=== PATIENT | male | born 1990 | race Caucasian/White ===

== ENCOUNTER 2016-04-26 16:40 | Emergency (ER) | payer OTHER ==
[2016-04-26] MEDS ORDERED: Sodium Chloride 0.9% 1000 ML 1,000 ML IV STA ×2 (17:16→17:18)
[2016-04-26] MEDS ORDERED: Zofran 4 MG/2 ML VIAL IV ONE (17:16)
[2016-04-26] MEDS ORDERED: PROTONIX 40 MG IV IV ONE ×2 (17:16→17:25)
[2016-04-26] MEDS ORDERED: Zofran 4 MG/2 ML VIAL ONE (17:25)
[2016-04-26] MEDS ORDERED: Sodium Chloride 0.9% 1000 ML 2,000 ML ONE (17:25)
[2016-04-26 17:42] LABS: Mean Cell Volume 86.4 fl (78-100); Mean Corpuscular Hemoglobin 29.5 pg (26-32); Mean Platelet Volume 10.8 fl (6-9.5); Platelet Count 262 K/mm3 (150-450); Red Blood Count 5.65 M/mm3 (4.1-5.6); Red Cell Distribution Width 13.1 % (11.5-14.0); White Blood Count 15.9 K/mm3 (4.0-10.5)
[2016-04-26 17:43] LABS: INR 1.03 (0.8-3.0); PROTIME 11.5 SECONDS (8.83-12.87)
[2016-04-26 17:50] LABS: ALBUMIN 4.3 g/dL (3.4-5.0); ALKALINE PHOSPHATASE 75 U/L (46-116); BILIRUBIN,TOTAL 0.8 mg/dL (0.2-1.0); BLOOD UREA NITROGEN 20 mg/dL (9-20); CHLORIDE 100 mEq/L (98-107); Carbon Dioxide 23.6 mEq/L (21-32); Glucose 122 MG/DL (70-110); LIPASE 117 U/L (73-393); Potassium 4.2 mEq/L (3.5-5.1); SGOT/AST 38 U/L (15-37); SGPT/ALT 85 U/L (12-78); SODIUM 138 mEq/L (136-145); Total Protein 7.8 gm/dL (6.4-8.2)
--- NOTE | 2016-04-26 17:59 | ERPHSYRPT ---
- History of Present Illness Time Seen by Provider: 04/26/16 17:00 Historian: patient Exam Limitations: clinical condition Patient Subjective Stated Complaint: PT REPORTS VOMITING SINCE LAST NIGHT- REPORTS DIARHEA RESOLVING AT [place] 1200 TODAY-UNSURE OF FEVER-PT REPORTS VOMITING BRIGHT RED BLOOD TURNING INTO A DARK RED COLOR Triage Nursing Assessment: PT PALE WARM ET DIAPHOERTIC UPON ARRIVAL-RESP NONLABORED-ABD SOFT ET TENDER TO PALP-WORSE ON THE RIGHT LOWER QUAD Physician History: PATIENT COMPLAINS OF UPPER ABDOMINAL PAINS, FREQUENT EPISODES VOMITING SINCE 8PM LAST NIGHT CONTAINING BLOOD. ALSO HAS ASSOCIATED DIARRHEA. ADMITS TO FEELING DROWSY, HAS NOT SLEPT LAST NIGHT. DENIES FEVER, RECTAL BLEEDING. Timing/Duration: yesterday Activities at Onset: none Quality: cramping Abdominal Pain Onset Location: epigastric, periumbilical Pain Radiation: no radiation Severity of Pain-Max: moderate Severity of Pain-Current: moderate Modifying Factors: Improves With: nothing Associated Symptoms: diarrhea, nausea, vomiting Previous symptoms: no prior history Allergies/Adverse Reactions: No Known Drug Allergies Allergy (Verified 04/26/16 16:51) Home Medications: No Home Meds 1 ea UD 04/26/16 [History] Hx Tetanus, Diphtheria Vaccination/Date Given: Yes (2009) Hx Influenza Vaccination/Date Given: Yes Hx Pneumococcal Vaccination/Date Given: No Immunizations Up to Date: Yes - Review of Systems Constitutional: No Fever, No Chills Eyes: No Symptoms Ears, Nose, & Throat: No Symptoms Respiratory: No Symptoms, No Cough, No Dyspnea Cardiac: No Symptoms, No Chest Pain, No Edema, No Syncope Abdominal/Gastrointestinal: Abdominal Pain, Nausea, Vomiting, Diarrhea Genitourinary Symptoms: No Symptoms, No Dysuria Musculoskeletal: No Symptoms, No Back Pain, No Neck Pain Skin: No Symptoms, No Rash Neurological: No Dizziness, No Focal Weakness, No Sensory Changes Psychological: No Symptoms Endocrine: No Symptoms All Other Systems: Reviewed and Negative - Past Medical History Pertinent Past Medical History: No - Past Surgical History Past Surgical History: Yes Other Surgical History: tonsils removed - Social History Smoking Status: Never smoker Exposure to second hand smoke: No Alcohol Use: Socially Drug Use: none Patient Lives Alone: No Significant Family History: no pertinent family hx - Nursing Vital Signs Nursing Vital Signs: Initial Vital Signs Temperature 98.9 F Temperature Source Oral Pulse Rate 92 Respiratory Rate 16 Blood Pressure 100/56 Pain Intensity 0 - Physical Exam General Appearance: no apparent distress, lethargy, other (DROWSY, EASILY AROUSABLE) Eye Exam: PERRL/EOMI, eyes nml inspection Ears, Nose, Throat Exam: normal ENT inspection, pharynx normal, moist mucous membranes Neck Exam: normal inspection, non-tender, supple, full range of motion Respiratory Exam: normal breath sounds, lungs clear, No respiratory distress Cardiovascular Exam: regular rate/rhythm, normal heart sounds Gastrointestinal/Abdomen Exam: soft, normal bowel sounds, tenderness ( EPIGASTRIC WITH PERIUMBILICAL TENDERNESS), No mass Rectal Exam: normal exam Back Exam: normal inspection, normal range of motion, No CVA tenderness, No vertebral tenderness Extremity Exam: normal inspection, normal range of motion, pelvis stable Neurologic Exam: alert, oriented x 3, cooperative, normal mood/affect, nml cerebellar function, sensation nml, No motor deficits Skin Exam: normal color, warm, dry SpO2 Interpretation: normal SpO2: 96 Oxygen Delivery: Room Air - CT Exams Abdomen/Pelvis CT Interpretation: Tele-radiologist Report (NORMAL ABDOMEN AND PELVIS, NO CALCIFIED STONES, HYDRONEPHROSIS, OR MUCOSAL WALL THICKENING ) Ordered Tests: Active Orders 24 hr Category Date Time Status Clean Catch Urine Specimen STAT Care 04/26/16 17:16 Active IV Insertion STAT Care 04/26/16 17:16 Active ABDOMEN AND PELVIS W CONTRAST [CT] Stat Exams 04/26/16 17:17 Taken AMYLASE Stat Lab 04/26/16 17:25 Completed CBC W DIFF Stat Lab 04/26/16 17:25 Completed CMP Stat Lab 04/26/16 17:25 Completed ETHYL ALCOHOL Stat Lab 04/26/16 17:25 Completed LIPASE Stat Lab 04/26/16 17:25 Completed Lactic Acid Urgent Lab 04/26/16 17:38 Completed Manual Differential NC Stat Lab 04/26/16 17:25 Completed Occult Blood,Stool Other Stat Lab 04/26/16 17:49 Completed PROTIME WITH INR Stat Lab 04/26/16 17:25 Completed UA W/ MICROSCOPIC Stat Lab 04/26/16 19:10 Completed Urine Triage Profile Stat Lab 04/26/16 19:10 Completed Medication Summary Discontinued Medications Generic Name Dose Route Start Last Admin Trade Name Freq PRN Reason Stop Dose Admin Sodium Chloride 1,000 mls @ 999 mls/hr 04/26/16 17:16 04/26/16 17:31 Sodium Chloride 0.9% 1000 Ml IV 04/26/16 18:16 999 mls/hr .Q1H1M STA Administration Sodium Chloride 1,000 mls @ 999 mls/hr 04/26/16 17:18 04/26/16 18:56 Sodium Chloride 0.9% 1000 Ml IV 04/26/16 18:18 999 mls/hr .Q1H1M STA Administration Sodium Chloride Confirm 04/26/16 17:25 Sodium Chloride 0.9% 1000 Ml Administered 04/26/16 17:26 Dose 2,000 mls @ ud .ROUTE .STK-MED ONE Ondansetron HCl 4 mg 04/26/16 17:16 04/26/16 17:31 Zofran 4 Mg/2 Ml Vial IV 04/26/16 17:17 4 mg STAT ONE Administration Ondansetron HCl Confirm 04/26/16 17:25 Zofran 4 Mg/2 Ml Vial Administered 04/26/16 17:26 Dose 4 mg .ROUTE .STK-MED ONE Pantoprazole Sodium 40 mg 04/26/16 17:16 04/26/16 17:31 Protonix 40 Mg Iv IV 04/26/16 17:17 40 mg STAT ONE Administration Pantoprazole Sodium Confirm 04/26/16 17:25 Protonix 40 Mg Iv Administered 04/26/16 17:26 Dose 40 mg IV .STK-MED ONE Lab/Rad Data: Laboratory Result Diagrams 04/26/16 17:25 04/26/16 17:25 Laboratory Results 04/26/16 04/26/16 04/26/16 Range/Units 19:10 19:10 17:49 WBC (4.0-10.5) K/mm3 RBC (4.1-5.6) M/mm3 Hgb (12.5-18.0) gm/dl Hct (42-50) % MCV (78-100) fl MCH (26-32) pg MCHC (32-36) g/dl RDW (11.5-14.0) % Plt Count (150-450) K/mm3 MPV (6-9.5) fl Segmented Neutrophils (36.-66.) % Band Neutrophils (0.0-2.0) % Lymphocytes (Manual) (24-44) % Monocytes (Manual) (0.0-12.0) % Differential Comment Platelet Estimate (NORMAL) INR (0.8-3.0) Sodium (136-145) mEq/L Potassium (3.5-5.1) mEq/L Chloride (98-107) mEq/L Carbon Dioxide (21-32) mEq/L Anion Gap (5-15) MEQ/L BUN (9-20) mg/dL Creatinine (0.55-1.30) mg/dl Estimated GFR ML/MIN Glucose (70-110) MG/DL Lactic Acid (0.4-2.0) Calcium (8.5-10.1) mg/dL Total Bilirubin (0.2-1.0) mg/dL AST (15-37) U/L ALT (12-78) U/L Alkaline Phosphatase (46-116) U/L Serum Total Protein (6.4-8.2) gm/dL Albumin (3.4-5.0) g/dL Amylase (25-115) U/L Lipase (73-393) U/L Ur Collection Type CLEAN CATCH Urine Color YELLOW (YELLOW) Urine Appearance CLEAR (CLEAR) Urine pH 5.5 (5-6) Ur Specific [place] 1.020 (1.005-1.025) Urine Protein 30 (Negative) Urine Glucose (UA) NEGATIVE (NEGATIVE) mg/dL Urine Ketones SMALL-15 (NEGATIVE) Urine Nitrite NEGATIVE (NEGATIVE) Urine Bilirubin NEGATIVE (NEGATIVE) Urine Urobilinogen 0.2 (0-1) mg/dL Urine WBC (Auto) NEGATIVE (NEGATIVE) Urine RBC (Auto) NEGATIVE (0-5) Fabrizio/ul Ur Epithelial Cells FEW (FEW) /HPF Urine Mucus SLIGHT (NEGATIVE) /HPF Stool Occult Blood NEGATIVE (Negative) Urine Opiates Level NEG. (NEGATIVE) Ur Methadone NEG. (NEGATIVE) Urine Barbiturates NEG. (NEGATIVE) Ur Phencyclidine (PCP) NEG. (NEGATIVE) Urine Amphetamine NEG. (NEGATIVE) U Benzodiazepine Level NEG. (NEGATIVE) Urine Cocaine NEG. (NEGATIVE) Urine Marijuana (THC) POS. (NEGATIVE) Ethyl Alcohol (0.00-0.01) % Specimen Received 04/26/16:1915 04/26/16 04/26/16 04/26/16 Range/Units 17:38 17:25 17:25 WBC (4.0-10.5) K/mm3 RBC (4.1-5.6) M/mm3 Hgb (12.5-18.0) gm/dl Hct (42-50) % MCV (78-100) fl MCH (26-32) pg MCHC (32-36) g/dl RDW (11.5-14.0) % Plt Count (150-450) K/mm3 MPV (6-9.5) fl Segmented Neutrophils (36.-66.) % Band Neutrophils (0.0-2.0) % Lymphocytes (Manual) (24-44) % Monocytes (Manual) (0.0-12.0) % Differential Comment Platelet Estimate (NORMAL) INR 1.03 (0.8-3.0) Sodium (136-145) mEq/L Potassium (3.5-5.1) mEq/L Chloride (98-107) mEq/L Carbon Dioxide (21-32) mEq/L Anion Gap (5-15) MEQ/L BUN (9-20) mg/dL Creatinine (0.55-1.30) mg/dl Estimated GFR ML/MIN Glucose (70-110) MG/DL Lactic Acid 1.3 (0.4-2.0) Calcium (8.5-10.1) mg/dL Total Bilirubin (0.2-1.0) mg/dL AST (15-37) U/L ALT (12-78) U/L Alkaline Phosphatase (46-116) U/L Serum Total Protein (6.4-8.2) gm/dL Albumin (3.4-5.0) g/dL Amylase (25-115) U/L Lipase (73-393) U/L Ur Collection Type Urine Color (YELLOW) Urine Appearance (CLEAR) Urine pH (5-6) Ur Specific [place] (1.005-1.025) Urine Protein (Negative) Urine Glucose (UA) (NEGATIVE) mg/dL Urine Ketones (NEGATIVE) Urine Nitrite (NEGATIVE) Urine Bilirubin (NEGATIVE) Urine Urobilinogen (0-1) mg/dL Urine WBC (Auto) (NEGATIVE) Urine RBC (Auto) (0-5) Fabrizio/ul Ur Epithelial Cells (FEW) /HPF Urine Mucus (NEGATIVE) /HPF Stool Occult Blood (Negative) Urine Opiates Level (NEGATIVE) Ur Methadone (NEGATIVE) Urine Barbiturates (NEGATIVE) Ur Phencyclidine (PCP) (NEGATIVE) Urine Amphetamine (NEGATIVE) U Benzodiazepine Level (NEGATIVE) Urine Cocaine (NEGATIVE) Urine Marijuana (THC) (NEGATIVE) Ethyl Alcohol (0.00-0.01) % Specimen Received 04/26/16 04/26/16 Range/Units 17:25 17:25 WBC 15.9 H (4.0-10.5) K/mm3 RBC 5.65 H (4.1-5.6) M/mm3 Hgb 16.7 (12.5-18.0) gm/dl Hct 48.8 (42-50) % MCV 86.4 (78-100) fl MCH 29.5 (26-32) pg MCHC 34.2 (32-36) g/dl RDW 13.1 (11.5-14.0) % Plt Count 262 (150-450) K/mm3 MPV 10.8 H (6-9.5) fl Segmented Neutrophils 83 H (36.-66.) % Band Neutrophils 4 H (0.0-2.0) % Lymphocytes (Manual) 7 L (24-44) % Monocytes (Manual) 6 (0.0-12.0) % Differential Comment NORMAL Platelet Estimate NORMAL (NORMAL) INR (0.8-3.0) Sodium 138 (136-145) mEq/L Potassium 4.2 (3.5-5.1) mEq/L Chloride 100 (98-107) mEq/L Carbon Dioxide 23.6 (21-32) mEq/L Anion Gap 19.0 H (5-15) MEQ/L BUN 20 (9-20) mg/dL Creatinine 1.19 (0.55-1.30) mg/dl Estimated GFR > 60 ML/MIN Glucose 122 H (70-110) MG/DL Lactic Acid (0.4-2.0) Calcium 8.8 (8.5-10.1) mg/dL Total Bilirubin 0.8 (0.2-1.0) mg/dL AST 38 H (15-37) U/L ALT 85 H (12-78) U/L Alkaline Phosphatase 75 (46-116) U/L Serum Total Protein 7.8 (6.4-8.2) gm/dL Albumin 4.3 (3.4-5.0) g/dL Amylase 28 (25-115) U/L Lipase 117 (73-393) U/L Ur Collection Type Urine Color (YELLOW) Urine Appearance (CLEAR) Urine pH (5-6) Ur Specific [place] (1.005-1.025) Urine Protein (Negative) Urine Glucose (UA) (NEGATIVE) mg/dL Urine Ketones (NEGATIVE) Urine Nitrite (NEGATIVE) Urine Bilirubin (NEGATIVE) Urine Urobilinogen (0-1) mg/dL Urine WBC (Auto) (NEGATIVE) Urine RBC (Auto) (0-5) Fabrizio/ul Ur Epithelial Cells (FEW) /HPF Urine Mucus (NEGATIVE) /HPF Stool Occult Blood (Negative) Urine Opiates Level (NEGATIVE) Ur Methadone (NEGATIVE) Urine Barbiturates (NEGATIVE) Ur Phencyclidine (PCP) (NEGATIVE) Urine Amphetamine (NEGATIVE) U Benzodiazepine Level (NEGATIVE) Urine Cocaine (NEGATIVE) Urine Marijuana (THC) (NEGATIVE) Ethyl Alcohol (0.00-0.01) % Specimen Received - Progress Progress: improved Progress Note: 04/26/16 17:55 PATIENT GIVEN IV NORMAL SALINE BOLUS, 1 LITER/HR X 2 04/26/16 17:59 PATIENT SLEEPING IN EMERGENCY 04/26/16 20:00 PATIENT ALERT AND APPROPRIATE Counseled pt/family regarding: lab results, diagnosis, need for follow-up, rad results - Departure Time of Disposition: 20:15 Departure Disposition: Home Clinical Impression: ACUTE GASTRITIS Condition: Stable Critical Care Time: No Referrals: DOCTOR,NO FAMILY [Primary Care Provider] - Additional Instructions: BEGIN A CLEAR LIQUID DIET FOR 24 HOURS THEN ADVANCE DIET TOLERATED. ZOFRAN 4MG EVERY 4 HOURS FOR NAUSEA NEEDED. PEPCID 20MG TWICE DAILY FOR 10 DAYS. CONSULT YOUR FAMILY PHYSICIAN FOR EVALUATION IN 1 WEEK Prescriptions: Ondansetron [Zofran Odt] 4 mg PO Q4HPRN PRN #4 tab.rapdis PRN Reason: Nausea Famotidine 20 mg [Pepcid 20 MG] 20 mg PO BID #20 tablet
[2016-04-26 18:23] LABS: BAND 4 % (0.0-2.0); Total Cells Counted 100
[2016-04-26 18:25] LABS: Platelet Estimate NORMAL (NORMAL)
[2016-04-26 19:31] LABS: COMPLETE URINE MICROSCOPIC? YES; Collection Type CLEAN CATCH; Epithelial Cells FEW /HPF (FEW); Mucus SLIGHT /HPF (NEGATIVE); Ph 5.5 (5-6)
[2016-04-26 20:31] VITALS: BP 110/69; PULSE 90; O2SAT 99
--- NOTE | 2016-04-27 08:46 | XRAY ---
Indication: Bilateral abdominal pain. Unable to urinate. Vomiting blood. Multiple contiguous axial images obtained through the abdomen and pelvis using 80 cc Isovue 370 contrast only. Comparison: None Lung bases demonstrates minimal bibasilar dependent atelectasis. Heart is not enlarged. Noncontrasted stomach and bowel loops appear nonobstructed. There is mild fluid distended small bowel loops as well as left mid abdominal small bowel wall thickening with some fluid leveling, ileus versus enteritis. No free fluid/air. Normal appendix. Remaining liver, gallbladder, pancreas, spleen, adrenal glands, kidneys, ureters, bladder, and aorta appear normal in CT appearance and attenuation. No pathologic retroperitoneal lymphadenopathy. Osseous structures intact with incidental partially sacralized L5 segment. Impression: Mild fluid distended small bowel loops with wall thickening and some fluid leveling, ileus versus enteritis. Comment: Preliminary interpretation was made by C. Small bowel findings not reported. Telephone report given to Dr. Coleman in the ER at 0842 hrs. on April 27, 2016. CT DI is 22.43
== END 2016-04-26 20:30 | disposition home or self-care (01) ==
LOC: ED 16:40
DX: K29.70 Gastritis, unspecified, without bleeding (principal); K52.9 Noninfective gastroenteritis and colitis, unspecified; R11.2 Nausea with vomiting, unspecified; R10.10 Upper abdominal pain, unspecified; R19.7 Diarrhea, unspecified; R10.13 Epigastric pain; R10.33 Periumbilical pain
CPT/HCPCS: 36000; 36415; 74177; 80053; 80307; 81000; 82150; 82272; 83605; 83690; 85025; 85610; 96360; 96361; 96374; 96375; 99283; G0481; J2405

== ENCOUNTER 2016-10-09 12:54 | Emergency (ER) | payer OTHER, SELFPAY ==
[2016-10-09 13:02] VITALS: BP 123/79; PULSE 85; O2SAT 97
[2016-10-09] MEDS ORDERED: Tylenol #3 Tablet PO ONE (13:30)
[2016-10-09] MEDS ORDERED: PEN-VEE K PO ONE (13:30)
--- NOTE | 2016-10-09 13:30 | ERPHSYRPT ---
- History of Present Illness Time Seen by Provider: 10/09/16 13:17 Source: patient Patient Subjective Stated Complaint: PT REPORTS DENTAL CARRIES-STATES HE IS HAVING A TOOTHACHE ON LEFT SIDE-REPORTS GETTING WORSE-STATES HE CAN NOT GET INTO HIS DENTIST FOR 2 WEEKS Triage Nursing Assessment: PT PINK WARM ET DRY-HOLDING LEFT JAW-DENIES DRAINAGE- DENTAL CARRIES NOTED Physician History: CC: toothache Hx: 26 y/o patient with toothache left upper tooth for 3 days. Worse despite motrin at home. called and he has dental appt with a new dentist (not sure name or town) in two weeks. No fever. Pain is severe. ENT Location: facial, dental Allergies/Adverse Reactions: No Known Drug Allergies Allergy (Verified 10/09/16 13:01) Home Medications: No Home Meds 1 ea UD 04/26/16 [History] Hx Tetanus, Diphtheria Vaccination/Date Given: Yes Hx Influenza Vaccination/Date Given: Yes Hx Pneumococcal Vaccination/Date Given: No Immunizations Up to Date: Yes - Review of Systems Constitutional: No Fever, No Chills Ears, Nose, & Throat: Mouth Pain Respiratory: No Dyspnea Abdominal/Gastrointestinal: No Nausea, No Vomiting Skin: No Rash - Past Medical History Pertinent Past Medical History: No - Past Surgical History Past Surgical History: Yes Other Surgical History: tonsils removed - Social History Smoking Status: Never smoker Exposure to second hand smoke: No Alcohol Use: Socially Drug Use: none Patient Lives Alone: No Significant Family History: no pertinent family hx - Nursing Vital Signs Nursing Vital Signs: Initial Vital Signs Temperature 98.0 F Temperature Source Oral Pulse Rate 85 Respiratory Rate 20 Blood Pressure [Right Arm] 123/79 Pain Intensity 8 - Physical Exam General Appearance: alert Eye Exam: bilateral eye: PERRL, EOMI Throat Exam: pharynx normal, dental tenderness (left upper molar with surrounding swelling, no trismus. Several caries. No facial cellulitis. Mild left facial swelling.) Neck Exam: normal inspection, non-tender, supple Cardiovascular/Respiratory Exam: normal breath sounds, regular rate/rhythm Neurologic Exam: alert, oriented x 3, cooperative Skin Exam: warm, dry SpO2 Interpretation: normal SpO2: 97 Oxygen Delivery: Room Air - Course Nursing assessment & vital signs reviewed: Yes - Progress Progress Note: 10/09/16 13:28 Advised import of dentist as soon as possible. Rx codiene and PCN. Instr given. Counseled pt/family regarding: diagnosis, need for follow-up - Departure Time of Disposition: 13:28 Departure Disposition: Home Clinical Impression: odonotogenic abscess Condition: Stable Critical Care Time: No Referrals: DOCTOR,NO FAMILY [Primary Care Provider] - Instructions: Dental Pain, Tooth Abscess Additional Instructions: Rx penicillin Rx codiene- no driving Continue ibuprofen 600mg every 6 hours for pain. See dentist as soon as possible- see list for possible choices. Return for problems or concerns. Prescriptions: Codeine Phosphate/APAP #3 [Tylenol #3 Tablet] 1 tab PO Q4-6HPRN PRN #15 tablet PRN Reason: Pain Penicillin V Potassium 500 mg PO QID #40 tablet
[2016-10-09] MEDS ORDERED: Tylenol #3 Tablet ONE (13:35)
[2016-10-09] MEDS ORDERED: PEN-VEE K ONE (13:35)
== END 2016-10-09 13:44 | disposition home or self-care (01) ==
LOC: ED 12:54
DX: K04.7 Periapical abscess without sinus (principal)
CPT/HCPCS: 99283; A9270-GY